=== PATIENT | male | born 1990 | race Caucasian/White ===

== ENCOUNTER 2020-06-19 13:18 | Outpatient (CLI) | payer MEDICAID, SELFPAY | END 2020-06-19 13:19 | disposition home or self-care (01) | LOC: ANHCOVIDVC 13:18 | DX: Z23 Encounter for immunization (principal) | CPT/HCPCS: 0001A; 91300 ==

== ENCOUNTER 2020-07-10 13:35 | Outpatient (CLI) | payer MEDICAID, SELFPAY | END 2020-07-10 13:36 | disposition home or self-care (01) | LOC: ANHCOVIDVC 13:36 | DX: Z23 Encounter for immunization (principal) | CPT/HCPCS: 0002A; 91300 ==